=== PATIENT | female | born 1955 | race Caucasian/White ===

== ENCOUNTER 2019-05-17 10:58 | Inpatient (IN) | payer OTHER ==
--- NOTE | 2019-05-17 11:10 | CT ---
EXAM: CT brain without contrast HISTORY: Left-sided weakness and facial drooping COMPARISON: None TECHNIQUE: Multiple contiguous axial images were obtained and a CT of the brain without contrast. FINDINGS: The brain is normal in morphology and attenuation without focal lesions or confluent areas of infarction. There is no evidence of hydrocephalus, intracranial hemorrhage, or extra-axial fluid collection. The calvarium and overlying soft tissues are unremarkable. The visualized paranasal sinuses and masto id air cells are well aerated. IMPRESSION: No evidence of acute intracranial abnormality Dr. Wilson notified of findings at 11:07 AM on 05/17/2019.
[2019-05-17 11:16] LABS: #Basophils 0.1 thou/uL (0.0-0.2); #Lymphocytes 1.9 thou/uL (1.20-3.40); #Monocytes 0.6 thou/uL (0.11-0.59); %Basophils 0.5 % (0.0-1.0); %Eosinophils 0.4 % (0.0-10.0); %Lymphocytes 14.9 % (21.0-51.0); %Monocytes 4.9 % (0.0-10.0); %Neutrophils 79.3 % (42.0-75.0); Hemoglobin 14.3 g/dL (12.0-16.0); Mean Corpuscular HGB CONC 33.2 g/dL (32.0-36.0); Mean Corpuscular Volume 87.3 fL (78.0-98.0); Mean Platelet Volume 8.7 fL (7.4-10.4); Platelet Count 179 thou/uL (130-400); RBC Distribution Width 12.5 % (11.5-14.5); Red Blood Cell (RBC) Count 4.92 mill/uL (4.20-5.40); White Blood Cell (WBC) Count 12.6 thou/uL (4.8-10.8)
[2019-05-17 11:22] LABS: PTT 30.8 SEC (22.9-36.1); Prothrombin Time 12.5 SEC (12.0-14.7)
[2019-05-17 11:23] LABS: INR-International Normal Ratio 0.9
--- NOTE | 2019-05-17 11:36 | CT ---
Exam: CTA neck with contrast CTA head with contrast HISTORY: Left-sided weakness and facial drooping COMPARISON: None TECHNIQUE: 1. Multiple contiguous axial images were obtained and a CTA of the neck with contrast. 3-D sagittal a nd coronal MIP reformats were performed. 2. Multiple contiguous axial images were obtained and a CTA of the head with contrast. 3-D sagittal a nd coronal MIP reformats were performed. FINDINGS: CTA NECK: Aortic arch: Normal origin of the carotid arteries from the arch. No significant atherosclerotic dise ase of the subclavian arteries. Right common carotid artery: No significant atherosclerotic disease or narrowing Left common carotid artery: No significant atherosclerotic disease or narrowing Right internal carotid artery: Mild atherosclerotic disease with less than 10% stenosis per NASCET cr iteria Right external carotid artery: No significant atherosclerotic disease or narrowing Left internal carotid artery: Mild atherosclerotic disease with less than 10% stenosis per NASCET cr iteria Left external carotid artery: No significant atherosclerotic disease or narrowing Right cervical vertebral artery: No significant atherosclerotic disease or narrowing Left cervical vertebral artery: No significant atherosclerotic disease or narrowing No cervical adenopathy. The lung apices are unremarkable. The osseous structures are unremarkable. CTA HEAD: Right intracranial internal carotid artery: Patent without narrowing or occlusion Right anterior cerebral artery: Patent without narrowing or occlusion Right middle cerebral artery: Patent without narrowing or occlusion Left intracranial internal carotid artery: Patent without narrowing or occlusion Left anterior cerebral artery: Patent without narrowing or occlusion Left middle cerebral artery: Patent without narrowing or occlusion No aneurysmal dilatation is seen in the anterior circulation. Right vertebral artery: Patent without narrowing or occlusion Left vertebral artery: Patent without narrowing or occlusion Basilar artery: Patent without narrowing or occlusion The posterior cerebral arteries and cerebellar arteries are patent without narrowing or occlusion. No aneurysmal dilatation is seen in the posterior circulation. IMPRESSION: 1. No significant CTA abnormality of the neck 2. No significant CTA abnormality of the head
[2019-05-17] MEDS ORDERED: Nitroglycerin 2% Ointment 1 INCH/1 GM Packet ONE (11:38)
[2019-05-17] MEDS ORDERED: Aspirin 325 MG TAB ONE (11:38)
[2019-05-17] MEDS ORDERED: Iopamidol-370 76% 500 ML 1 ML ONE (11:50)
[2019-05-17 12:19] LABS: ALT (SGPT) 20 U/L (8-55); AST (SGOT) 17 U/L (5-34); Albumin 4.2 g/dL (3.4-4.8); Alkaline Phosphatase 74 U/L (40-110); Anion Gap 15 mmol/L (10-20); BUN (Urea Nitrogen) 15 mg/dL (9.8-20.1); Bilirubin, Total 0.5 mg/dL (0.2-1.2); CK (CPK) 34 U/L (29-168); Calc. Creatinine Clearance 0 mL/min (70-130); Calcium 9.7 mg/dL (7.8-10.44); Carbon Dioxide 22 mmol/L (23-31); Chloride 105 mmol/L (98-107); Estimated GFR-MDRD 84; Globulin 2.9 g/dL (2.4-3.5); Glucose 272 mg/dL (80-115); Potassium 4.3 mmol/L (3.5-5.1); Protein, Total 7.1 g/dL (6.0-8.3); Sodium 138 mmol/L (136-145)
[2019-05-17] MEDS ORDERED: Bisacodyl 10 MG SUPP PR PRN (15:03)
[2019-05-17] MEDS ORDERED: Acetaminophen 325 MG TAB PO PRN (15:03)
[2019-05-17] MEDS ORDERED: Artificial Tears 18 DROP/0.9 ML EA EYE PRN (15:03)
[2019-05-17] MEDS ORDERED: Zolpidem Tartrate 5 MG TAB PO PRN (15:03)
[2019-05-17] MEDS ORDERED: Sodium Chloride 0.65% Nasal 44 ML BOT EA NARE PRN (15:03)
[2019-05-17] MEDS ORDERED: Dextrose 50% Abboject 50 ML SYRINGE SLOW IVP PRN (15:03)
[2019-05-17] MEDS ORDERED: Loperamide HCl 2 MG CAP PO PRN (15:03)
[2019-05-17] MEDS ORDERED: Cepastat Lozenges 1 LOZ PO PRN (15:03)
[2019-05-17] MEDS ORDERED: Ondansetron PF 4 MG/2 ML Vial IVP PRN (15:03)
[2019-05-17] MEDS ORDERED: Dextrose 5% in Water 1,000 ML IV PRN (15:03)
[2019-05-17] MEDS ORDERED: Senokot S 8.6-50 MG TAB PO PRN (15:03)
[2019-05-17] MEDS ORDERED: Diabetic Tussin 200 MG/10 ML UDCUP PO PRN (15:03)
[2019-05-17] MEDS ORDERED: Loratadine 10 MG TAB PO PRN (15:03)
[2019-05-17] MEDS ORDERED: Ondansetron ODT 4 MG TAB PO PRN (15:03)
[2019-05-17] MEDS ORDERED: Calcium Carbonate 500 MG ChewTAB PO PRN (15:03)
[2019-05-17] MEDS ORDERED: HumaLOG 300 UNITS/3 ML VIAL SC PRN ×2 (15:03)
[2019-05-17] MEDS ORDERED: hydrALAZINE 20 MG/ML VIAL SLOW IVP PRN (15:03)
--- NOTE | 2019-05-17 15:28 | HP ---
PRIMARY CARE PHYSICIAN: Dr. Sami Monae. REASON FOR ADMISSION: Acute CVA. HISTORY OF PRESENT ILLNESS: A 64-year-old female, who has underlying history of diabetes type 2 and hypertension, who presented to emergency room with complaint of left-sided upper and lower extremity weakness and facial droop as well as slurred speech. The patient reports that yesterday in the evening when she was returning from restaurant to go home, at that time she noticed that her left lower extremity was dragging. She ignored that symptoms. She required help from her son to get out of car to go to her bedroom. The patient did not come to medical attention at that time. She went to bed and she slept, and during night time, the patient was having cramping in the lower extremity. When she woke up this morning around 6 a.m., the patient was not able to ambulate and required help from her . Subsequently, she went to sleep and again at 7:30, the patient was not able to ambulate because she was having more weakness in the lower extremity and upper extremity, and she was also having facial droop and difficulty speaking and that is why the patient decided to come to emergency room for evaluation. In the emergency room, the patient was experiencing weakness in the upper extremity as well as her facial droop was not changing. She had CT brain, which was unremarkable and CT angiography of head and neck was also unremarkable. She was hypertensive initially. In the emergency room, the patient was given aspirin and IV fluid as well as nitroglycerin patch was applied. REVIEW OF SYSTEMS: CONSTITUTIONAL: Negative for weight loss or gain, ability to conduct usual activities. SKIN: Negative for rash, itching. EYES: Negative for double vision, pain. ENT/MOUTH: Negative for nose bleeding, neck stiffness, pain, tenderness. CARDIOVASCULAR: Negative for palpitations, dyspnea on exertion, orthopnea. RESPIRATORY: Negative for shortness of breath, wheezing, cough, hemoptysis, fever or night sweats. GASTROINTESTINAL: Negative for poor appetite, abdominal pain, heartburn, nausea, vomiting, constipation, or diarrhea. GENITOURINARY: Negative for urgency, frequency, dysuria, nocturia. MUSCULOSKELETAL: Negative for pain, swelling. NEUROLOGIC/PSYCHIATRIC: Negative for anxiety, depression. ALLERGY/IMMUNOLOGIC: Negative for skin rash, bleeding tendency. Please see my HPI for pertinent positives and negatives. All other review of systems reviewed and negative except as mentioned in HPI. PAST MEDICAL HISTORY: Diabetes type 2, hypertension, nephrolithiasis. PAST SURGICAL HISTORY: Cholesterol cyst removed from face, tonsillectomy. PAST PSYCHIATRIC HISTORY: Reviewed and negative. SOCIAL HISTORY: The patient is . No history of tobacco, alcohol, or illicit drug abuse. FAMILY HISTORY: No strong family history of premature coronary artery disease, stroke, or cancer. ALLERGIES: PENICILLIN AND VICODIN. CURRENT HOME MEDICATIONS: The patient does not have any medication with her at this point and unable to recall. EMERGENCY ROOM COURSE: The patient was given aspirin, nitroglycerin patch, and IV fluid. PHYSICAL EXAMINATION: VITAL SIGNS: Currently, blood pressure 184/93, pulse 93, respiratory rate 16, temperature 98.5, saturation 99% on room air, weight 71 kg. GENERAL: The patient is currently alert and awake. No obvious acute distress. HEENT: Head; normocephalic, atraumatic. Eyes; pupils round, reactive to light. Extraocular muscle intact. ENT, oropharynx within normal limits. Moist mucous membranes. No oral lesion. No pharyngeal erythema. No exudate. Left-sided facial droop noted. NECK: Supple. No JVD. No thyromegaly. No carotid bruit. LUNGS: Clear to auscultation without any rhonchi or rales. CARDIAC: S1 and S2, regular without any murmur. No gallop. No rub. ABDOMEN: Soft. Bowel sounds present. Nontender. Nondistended. No organomegaly. No mass. EXTREMITIES: No edema. Good distal pulsation. SKIN: No skin rash. PSYCHIATRIC: Normal affect. NEUROLOGIC: The patient is alert and oriented x3. Cranial nerves 2 through 12 intact except left-sided 7th upper motor neuron palsy. Motor 3/5 in lower extremity and 2/5 in upper extremity. Sensation normal. Plantar, bilateral flexor. Unable to perform cerebellar sign to the left upper extremity. SIGNIFICANT LABORATORY DATA: EKG is showing normal sinus rhythm and left atrial enlargement. CTA brain based on my review, no acute intracranial process. CT head and neck angiography showed no acute large vessel occlusion and atherosclerosis. CBC; WBC 12.6, hemoglobin 14.3, platelet 179. INR 0.9. BMP; sodium 138, potassium 4.3, chloride 105, carbon dioxide 22, anion gap 15, BUN 15, creatinine 0.70, glucose 272, calcium 9.7. LFT; AST 17, ALT 20, alkaline phosphatase 74, albumin 4.2. Troponin I less than 0.010. ASSESSMENT AND PLAN: 1. Acute cerebrovascular accident suspecting right middle cerebral artery territory cerebrovascular accident due to small vessel occlusion. CT angiography and CT brain are not showing any acute process at this point. The patient is out of window period for tissue plasminogen activator as well. At this point, the patient will need PT, OT, Speech and rehab evaluation. We will consult Neurology for their opinion. We will continue with aspirin 325 mg p.o. daily. We will keep permissive hypertension today. We will start Lipitor 40 mg p.o. at bedtime. We will obtain MRI brain and echocardiography as a part of stroke workup. We will also check homocystine and urine drug screen as a part of workup. 2. Diabetes type 2. We will continue with insulin as per sliding scale. Diabetic diet will be given. We will check hemoglobin A1c tomorrow. 3. Dyslipidemia. We will check lipid profile tomorrow and continue Lipitor 40 mg p.o. at bedtime. 4. Hypertension. At this point, we will not start antihypertensive medication. We will keep blood pressure on upper limit, only very rare. If blood pressure is more than 180, then we will use hydralazine on a p.r.n. basis. 5. Deep venous thrombosis prophylaxis with Lovenox 40 mg subcu daily. 6. Gastrointestinal prophylaxis with Pepcid 20 mg p.o. b.i.d. CODE STATUS: The patient is full code. The patient's is surrogate decision maker. DISPOSITION PLAN: Based on clinical course, the patient most likely will need rehabilitation. Plan of care discussed with the patient and her at bedside in the emergency room. Job ID: [id number]
[2019-05-17 18:26] VITALS: BMI 28.5
[2019-05-17 19:12] LABS: Amphetamine Not Detected (NotDetected); Barbiturates Screen Not Detected (NotDetected); Benzodiazepine Screen Not Detected (NotDetected); Cocaine Metabolite Screen Not Detected (NotDetected); Medtox Control Line Valid? VALID (VALID); Medtox Reader # READER 4; Methadone Not Detected (NotDetected); Methamphetamine Not Detected (NotDetected); Opiate Screen Not Detected (NotDetected); Oxycodone Screen Not Detected (NotDetected); Phencyclidine (PCP) Not Detected (NotDetected); THC/Cannabinoid Screen Not Detected (NotDetected); Tricyclic Screen Not Detected (NotDetected)
[2019-05-17] MEDS: Atorvastatin Calcium 40 MG TAB PO SCH (20:45)
[2019-05-17] MEDS: Famotidine 20 MG TAB PO SCH (20:46)
[2019-05-18 05:10] LABS: #Basophils 0.1 thou/uL (0.0-0.2); #Eosinphils 0.1 thou/uL (0.0-0.7); #Lymphocytes 2.4 thou/uL (1.20-3.40); #Monocytes 0.5 thou/uL (0.11-0.59); #Neutrophils 5.2 thou/uL (1.40-6.50); %Basophils 0.7 % (0.0-1.0); %Eosinophils 1.5 % (0.0-10.0); %Lymphocytes 28.8 % (21.0-51.0); %Monocytes 5.9 % (0.0-10.0); %Neutrophils 63.1 % (42.0-75.0); Hemoglobin 13.6 g/dL (12.0-16.0); Mean Corpuscular HGB CONC 33.1 g/dL (32.0-36.0); Mean Corpuscular Hemoglobin 29.1 pg (27.0-31.0); Mean Corpuscular Volume 87.8 fL (78.0-98.0); Mean Platelet Volume 8.8 fL (7.4-10.4); Platelet Count 165 thou/uL (130-400); RBC Distribution Width 12.6 % (11.5-14.5); Red Blood Cell (RBC) Count 4.67 mill/uL (4.20-5.40); White Blood Cell (WBC) Count 8.3 thou/uL (4.8-10.8)
[2019-05-18 05:23] LABS: Anion Gap 11 mmol/L (10-20); BUN (Urea Nitrogen) 9 mg/dL (9.8-20.1); Calc. Creatinine Clearance 106 mL/min (70-130); Calcium 9.7 mg/dL (7.8-10.44); Carbon Dioxide 27 mmol/L (23-31); Cardiac Risk 3.9 (Less than 4.5); Chloride 107 mmol/L (98-107); Cholesterol 190 mg/dl (< 200 Desired); Estimated GFR-MDRD Greater than 90; Glucose 172 mg/dL (80-115); HDL Cholesterol 49 mg/dL (>60 Neg Risk); LDL Cholesterol, Calculated 119 mg/dL; Potassium 3.9 mmol/L (3.5-5.1); Sodium 141 mmol/L (136-145); Triglycerides 109 mg/dL (Less than 150)
[2019-05-18 05:41] LABS: Syphilis Antibody Nonreactive (Nonreactive); Syphilis Antibody Index 0.05 S/CO (<1.00 Non-Reactive)
[2019-05-18] MEDS ORDERED: Lorazepam 2 MG/ML VIAL SLOW IVP PRN (08:45)
[2019-05-18] MEDS ORDERED: FLU VACC TS2019-20(65YR UP)/PF 180 MCG/0.5 ML SYRINGE IM ONE (09:00)
[2019-05-18] MEDS: Famotidine 20 MG TAB PO SCH (09:23)
[2019-05-18] MEDS: Enoxaparin Sodium 40 MG/0.4 ML SYRINGE SC SCH (09:23)
--- NOTE | 2019-05-18 09:51 | CON ---
DATE OF CONSULTATION: 05/18/2019 CONSULTING PHYSICIAN: Hospitalist Service. IMPRESSION: 1. Probable lacunar stroke with left-sided weakness. 2. Diabetes. 3. Hypertension. PLAN: 1. Continue statin and start aspirin daily. 2. PT and OT evaluations. 3. Echocardiogram. 4. MRI of the brain. 5. Probable rehab transfer. HISTORY OF PRESENT ILLNESS: Ms. Rich is a 64-year-old woman, who reportedly had diet-controlled diabetes. She exercises on a regular basis. She presented with some progressive left-sided weakness. It was not associated with any sensory loss. She is not having any problems with speech or swallowing. She has never had anything like this before. Initial CT and CT angiogram were both unremarkable. Laboratory studies showed an elevated blood glucose over 200, but was otherwise unremarkable. Her cholesterol ratio was 3.9. Toxicology screen was negative. Her syphilis is negative. She has been admitted for further evaluation. PAST MEDICAL HISTORY: Diabetes. ALLERGIES: PENICILLIN, HYDROCODONE. SOCIAL HISTORY: No tobacco use. FAMILY HISTORY: Unremarkable. MEDICATION LIST: Reviewed. REVIEW OF SYSTEMS: Ten-system review of systems is otherwise negative. PHYSICAL EXAMINATION: VITAL SIGNS: Blood pressure 174/87, pulse 79, respirations 16, and temperature 99.4. HEENT: Pupils are equal and reactive. Conjunctivae are clear. Oropharynx clear. NECK: Supple. EXTREMITIES: No cyanosis or edema. NEUROLOGIC: She is alert and oriented. Her speech is fluent and clear. Cranial nerve exam shows a mild left facial droop. Motor exam shows no movement in the left upper extremity. She is able to hip flex on the left. It is weak distally. Sensation is intact to light touch. There is no tremor or dysmetria present. Gait was not tested. LABORATORY DATA: Laboratory studies were reviewed. IMAGING: Reviewed. SUMMARY: This is a middle-aged woman with an acute left-sided weakness, which looks consistent with a small vessel stroke. We will pursue follow up on her workup and make further recommendations as necessary. Job ID: [id number]
--- NOTE | 2019-05-18 10:10 | PDOC.HOSPP ---
- Subjective Encounter Date: 05/18/19 Encounter Time: 07:45 Subjective: Patient seen and examined. No new complaints. No overnight events pt has facial droop, left side weakness - Objective Vital Signs & Weight: Vital Signs (12 hours) Temp Pulse Resp BP Pulse Ox 05/18/19 09:23 98 05/18/19 07:13 99.4 F 79 16 174/87 H 98 05/18/19 04:00 97.9 F 82 18 150/89 H 98 05/17/19 23:52 99.0 F 79 16 146/77 H 95 Weight Weight 161 lb I&O: 05/17/19 05/18/19 05/19/19 06:59 06:59 06:59 Intake Total 240 Output Total 300 Balance -60 Result Diagrams: 05/18/19 04:50 05/18/19 04:50 Additional Labs: Accuchecks 05/18/19 05/17/19 05/17/19 06:09 20:48 11:24 POC Glucose 167 H 177 H 246 H Radiology Reviewed by me: Yes EKG Reviewed by me: Yes Hospitalist ROS - Review of Systems Constitutional: denies: fever, chills, sweats, weakness, malaise, other Eyes: denies: pain, vision change, conjunctivae inflammation, eyelid inflammation, redness, other ENT: denies: ear pain, ear discharge, nose pain, nose discharge, nose congestion , mouth pain, mouth swelling, throat pain, throat swelling, other Respiratory: denies: cough, dry, shortness of breath, hemoptysis, SOB with excertion, pleuritic pain, sputum, wheezing, other Cardiovascular: denies: chest pain, palpitations, orthopnea, paroxysmal noc. dyspnea, edema, light headedness, other Gastrointestinal: denies: nausea, vomiting, abdominal pain, diarrhea, constipation, melena, hematochezia, other Genitourinary: denies: dysuria, frequency, incontinence, hematuria, retention, other Musculoskeletal: denies: neck pain, shoulder pain, arm pain, back pain, hand pain, leg pain, foot pain, other Skin: denies: rash, lesions, jonatan, bruising, other Neurological: reports: weakness. denies: numbness, incoordination, change in speech, confusion, seizures, other - Medication Medications: Active Medications Generic Name Dose Route Start Last Admin Trade Name Patricia PRN Reason Stop Dose Admin Atorvastatin Calcium 40 mg 05/17/19 21:00 05/17/19 20:45 Lipitor PO 40 mg HS MEENAKSHI Administration Enoxaparin Sodium 40 mg 05/18/19 09:00 05/18/19 09:23 Lovenox SC 40 mg 0900 MEENAKSHI Administration Famotidine 20 mg 05/17/19 21:00 05/18/19 09:23 Pepcid PO Not Given BID MEENAKSHI - Exam General Appearance: NAD, awake alert Eye: PERRL, anicteric sclera ENT: normocephalic atraumatic, no oropharyngeal lesions Neck: supple, symmetric, no JVD, no thyromegaly Heart: RRR, no murmur, no gallops, no rubs, normal peripheral pulses Respiratory: CTAB, no wheezes, no rales, no ronchi Gastrointestinal: soft, non-tender, non-distended, normal bowel sounds, no palpable masses Extremities: no cyanosis, no clubbing, no edema Skin: normal turgor, no lesions, no rashes Neurological: facial droop, hemiplegia Musculoskeletal: normal tone, normal strength Psychiatric: normal affect, normal behavior, A&O x 3 Hosp A/P (1) Acute CVA (cerebrovascular accident) Code(s): I63.9 - CEREBRAL INFARCTION, UNSPECIFIED Status: Acute (2) Hypertension Code(s): I10 - ESSENTIAL (PRIMARY) HYPERTENSION Status: Chronic Qualifiers: Hypertension type: essential hypertension Qualified Code(s): I10 - Essential (primary) hypertension (3) Diabetes type 2, controlled Code(s): E11.9 - TYPE 2 DIABETES MELLITUS WITHOUT COMPLICATIONS Status: Chronic (4) Dyslipidemia Code(s): E78.5 - HYPERLIPIDEMIA, UNSPECIFIED Status: Chronic - Plan old records reviewed/req, PT/OT, addiction social worker, speech therapy, DVT proph w/ lovenox 05/18/19 will give ativan for MRI today MRI, echo neurology recommendation appreciated continue stroke team evaluation rehab on discharge check HBA1c
[2019-05-18 11:43] LABS: Hemoglobin A1c 8.1 % (4.0-6.0)
--- NOTE | 2019-05-18 11:45 | MRI ---
EXAM: MRI of the brain without contrast HISTORY: Stroke with left-sided weakness and facial drooping COMPARISON: CT brain 05/17/2019 TECHNIQUE: Multiplanar multisequence MR images were obtained of the brain without IV contrast. FINDINGS: There is a 1.8 cm area of restricted diffusion and high FLAIR signal in the right aspect of the sheeba consistent with an acute infarction. This is difficult to see on the prior CT brain given the susceptibility artifact in the posterior fossa. No hydronephrosis. No extra-axial fluid collection or intracranial hemorrhage. The expected flow voids are present. Corpus callosum, pituitary, and craniocervical junction are within normal limits. The calvarium and overlying soft tissues are unremarkable. The paranasal sinuses and mastoid air cells are well aerated. IMPRESSION: Acute infarction in the right aspect of the sheeba.
[2019-05-18] MEDS ORDERED: Aspirin 325 MG TAB PO SCH (14:45)
[2019-05-18] MEDS: Atorvastatin Calcium 40 MG TAB PO SCH (23:33)
[2019-05-19] MEDS: Famotidine 20 MG TAB PO SCH ×3 (03:47→21:10)
--- NOTE | 2019-05-19 09:55 | PDOC.HOSPP ---
- Subjective Encounter Date: 05/19/19 Encounter Time: 07:30 Subjective: Patient seen and examined. No new complaints. No overnight events - Objective Vital Signs & Weight: Vital Signs (12 hours) Temp Pulse Resp BP Pulse Ox 05/19/19 08:47 97 05/19/19 07:42 98.3 F 68 16 170/75 H 97 05/19/19 04:00 98.0 F 65 16 161/72 H 97 05/19/19 00:00 98.2 F 80 16 152/79 H 94 L Weight Weight 161 lb I&O: 05/18/19 05/19/19 05/20/19 06:59 06:59 06:59 Intake Total 240 240 Output Total 300 1000 Balance -60 -760 Result Diagrams: 05/18/19 04:50 05/18/19 04:50 Additional Labs: Accuchecks 05/19/19 05/18/19 05/18/19 05:51 20:44 16:38 POC Glucose 159 H 195 H 230 H 05/18/19 10:42 POC Glucose 210 H Radiology Reviewed by me: Yes EKG Reviewed by me: Yes Hospitalist ROS - Review of Systems Constitutional: denies: fever, chills, sweats, weakness, malaise, other Eyes: denies: pain, vision change, conjunctivae inflammation, eyelid inflammation, redness, other ENT: denies: ear pain, ear discharge, nose pain, nose discharge, nose congestion , mouth pain, mouth swelling, throat pain, throat swelling, other Respiratory: denies: cough, dry, shortness of breath, hemoptysis, SOB with excertion, pleuritic pain, sputum, wheezing, other Cardiovascular: denies: chest pain, palpitations, orthopnea, paroxysmal noc. dyspnea, edema, light headedness, other Gastrointestinal: denies: nausea, vomiting, abdominal pain, diarrhea, constipation, melena, hematochezia, other Genitourinary: denies: dysuria, frequency, incontinence, hematuria, retention, other Musculoskeletal: denies: neck pain, shoulder pain, arm pain, back pain, hand pain, leg pain, foot pain, other Neurological: reports: weakness. denies: numbness, incoordination, change in speech, confusion, seizures, other - Medication Medications: Active Medications Generic Name Dose Route Start Last Admin Trade Name Freq PRN Reason Stop Dose Admin Atorvastatin Calcium 40 mg 05/17/19 21:00 05/18/19 23:33 Lipitor PO 40 mg HS MEENAKSHI Administration Enoxaparin Sodium 40 mg 05/18/19 09:00 05/18/19 09:23 Lovenox SC 40 mg 0900 MEENAKSHI Administration Famotidine 20 mg 05/17/19 21:00 05/19/19 03:47 Pepcid PO Not Given BID MEENAKSHI Sodium Chloride 10 ml 05/17/19 15:03 05/18/19 23:33 Flush - Normal Saline IVF 10 ml PRN PRN Administration Saline Flush - Exam General Appearance: NAD, awake alert Eye: PERRL, anicteric sclera ENT: normocephalic atraumatic, no oropharyngeal lesions Neck: supple, symmetric, no JVD Heart: RRR, no murmur, no gallops Respiratory: CTAB, no wheezes, no rales Gastrointestinal: soft, non-tender, non-distended, normal bowel sounds Extremities: no cyanosis, no clubbing Skin: normal turgor, no lesions Neurological: facial droop, hemiplegia Musculoskeletal: normal tone, normal strength Psychiatric: normal affect, normal behavior Hosp A/P (1) Acute CVA (cerebrovascular accident) Code(s): I63.9 - CEREBRAL INFARCTION, UNSPECIFIED Status: Acute Plan: right sheeba (2) Hypertension Code(s): I10 - ESSENTIAL (PRIMARY) HYPERTENSION Status: Chronic Qualifiers: Hypertension type: essential hypertension Qualified Code(s): I10 - Essential (primary) hypertension (3) Diabetes type 2, controlled Code(s): E11.9 - TYPE 2 DIABETES MELLITUS WITHOUT COMPLICATIONS Status: Chronic (4) Dyslipidemia Code(s): E78.5 - HYPERLIPIDEMIA, UNSPECIFIED Status: Chronic - Plan old records reviewed/req, PT/OT, social worker masters, DVT proph w/lovenox 05/18/19 will give ativan for MRI today MRI, echo neurology recommendation appreciated continue stroke team evaluation rehab on discharge check HBA1c 05/19/19 add glipizide 2.5 m gpo bid add lisnopril 5 mg po daily continue stroke team evaluation expected dc to rehab may be tomorrow medication reviewed as above and continue to provide supportive care
[2019-05-19] MEDS: Aspirin 325 MG TAB PO SCH (10:33)
[2019-05-19] MEDS: Enoxaparin Sodium 40 MG/0.4 ML SYRINGE SC SCH (10:33)
[2019-05-19] MEDS: Lisinopril 5 MG TAB PO SCH (10:36)
[2019-05-19] MEDS: glipiZIDE 5 MG TAB PO SCH (16:13)
[2019-05-19] MEDS: Atorvastatin Calcium 40 MG TAB PO SCH (21:10)
[2019-05-20] MEDS: glipiZIDE 5 MG TAB PO SCH ×2 (09:44→17:26)
[2019-05-20] MEDS: Enoxaparin Sodium 40 MG/0.4 ML SYRINGE SC SCH (09:47)
[2019-05-20] MEDS: Lisinopril 5 MG TAB PO SCH (09:47)
[2019-05-20] MEDS: Aspirin 325 MG TAB PO SCH (09:47)
[2019-05-20] MEDS: Famotidine 20 MG TAB PO SCH (09:47)
--- NOTE | 2019-05-20 10:29 | PDOC.HOSPP ---
- Subjective Encounter Date: 05/20/19 Encounter Time: 07:40 Subjective: Patient seen and examined. No new complaints. No overnight events - Objective Vital Signs & Weight: Vital Signs (12 hours) Temp Pulse Resp BP BP Pulse Ox 05/20/19 09:55 94 L 05/20/19 09:47 78 142/75 H 05/20/19 07:16 98.0 F 79 16 142/75 H 94 L 05/20/19 03:10 98.4 F 80 16 142/76 H 97 05/19/19 23:20 98.2 F 84 16 140/73 97 Weight Weight 161 lb I&O: 05/19/19 05/20/19 05/21/19 06:59 06:59 06:59 Intake Total 240 400 Output Total 1000 1800 150 Balance -760 -1800 250 Result Diagrams: 05/18/19 04:50 05/18/19 04:50 Additional Labs: Accuchecks 05/20/19 05/19/19 05/19/19 05:58 19:16 16:30 POC Glucose 150 H 186 H 176 H 05/19/19 10:52 POC Glucose 198 H Hospitalist ROS - Review of Systems ENT: denies: ear pain, ear discharge, nose pain, nose discharge, nose congestion , mouth pain, mouth swelling, throat pain, throat swelling, other Respiratory: denies: cough, dry, shortness of breath, hemoptysis, SOB with excertion, pleuritic pain, sputum, wheezing, other Cardiovascular: denies: chest pain, palpitations, orthopnea, paroxysmal noc. dyspnea, edema, light headedness, other Gastrointestinal: denies: nausea, vomiting, abdominal pain, diarrhea, constipation, melena, hematochezia, other Genitourinary: denies: dysuria, frequency, incontinence, hematuria, retention, other Musculoskeletal: denies: neck pain, shoulder pain, arm pain, back pain, hand pain, leg pain, foot pain, other Neurological: reports: weakness. denies: numbness, incoordination, change in speech, confusion, seizures, other - Medication Medications: Active Medications Generic Name Dose Route Start Last Admin Trade Name Freq PRN Reason Stop Dose Admin Aspirin 325 mg 05/19/19 09:00 05/20/19 09:47 Aspirin PO 325 mg DAILY MEENAKSHI Administration Atorvastatin Calcium 40 mg 05/17/19 21:00 05/19/19 21:10 Lipitor PO 40 mg HS MEENAKSHI Administration Enoxaparin Sodium 40 mg 05/18/19 09:00 05/20/19 09:47 Lovenox SC 40 mg 0900 MEENAKSHI Administration Famotidine 20 mg 05/17/19 21:00 05/20/19 09:47 Pepcid PO Not Given BID MEENAKSHI Glipizide 2.5 mg 05/19/19 16:30 05/20/19 09:44 Glucotrol PO 2.5 mg BID-AC MEENAKSHI Administration Lisinopril 5 mg 05/19/19 09:00 05/20/19 09:47 Zestril PO 5 mg DAILY MEENAKSHI Administration Sodium Chloride 10 ml 05/17/19 15:03 05/18/19 23:33 Flush - Normal Saline IVF 10 ml PRN PRN Administration Saline Flush - Exam General Appearance: NAD, awake alert Eye: PERRL, anicteric sclera ENT: normocephalic atraumatic, no oropharyngeal lesions Neck: supple, symmetric, no JVD Respiratory: CTAB, no wheezes, no rales Gastrointestinal: soft, non-tender, non-distended, normal bowel sounds Extremities: no edema Skin: normal turgor, no lesions Neurological: facial droop, hemiplegia Musculoskeletal: normal tone, normal strength Psychiatric: normal affect, normal behavior Hosp A/P (1) Acute CVA (cerebrovascular accident) Code(s): I63.9 - CEREBRAL INFARCTION, UNSPECIFIED Status: Acute (2) Hypertension Code(s): I10 - ESSENTIAL (PRIMARY) HYPERTENSION Status: Chronic Qualifiers: Hypertension type: essential hypertension Qualified Code(s): I10 - Essential (primary) hypertension (3) Diabetes type 2, controlled Code(s): E11.9 - TYPE 2 DIABETES MELLITUS WITHOUT COMPLICATIONS Status: Chronic (4) Dyslipidemia Code(s): E78.5 - HYPERLIPIDEMIA, UNSPECIFIED Status: Chronic - Plan old records reviewed/req, PT/OT, child welfare social worker 05/18/19 will give ativan for MRI today MRI, echo neurology recommendation appreciated continue stroke team evaluation rehab on discharge check HBA1c 05/19/19 add glipizide 2.5 m gpo bid add lisnopril 5 mg po daily continue stroke team evaluation expected dc to rehab may be tomorrow medication reviewed as above and continue to provide supportive care 05/20/19 stroke team evaluation rehab placement medication reviewed as above and symptomatic treatment
[2019-05-20] MEDS: Atorvastatin Calcium 40 MG TAB PO SCH (20:57)
[2019-05-21] MEDS: glipiZIDE 5 MG TAB PO SCH ×2 (09:05→17:58)
[2019-05-21] MEDS: Lisinopril 5 MG TAB PO SCH (09:08)
[2019-05-21] MEDS: Aspirin 325 MG TAB PO SCH (09:08)
[2019-05-21] MEDS: Enoxaparin Sodium 40 MG/0.4 ML SYRINGE SC SCH (09:09)
--- NOTE | 2019-05-21 10:17 | PDOC.HOSPP ---
- Subjective Encounter Date: 05/21/19 Encounter Time: 07:40 Subjective: Patient seen and examined. No new complaints. No overnight events - Objective Vital Signs & Weight: Vital Signs (12 hours) Temp Pulse Resp BP Pulse Ox 05/21/19 09:08 85 05/21/19 07:32 97.5 F L 96 20 141/74 H 97 05/21/19 04:00 98.3 F 61 18 147/78 H 97 05/21/19 00:00 98.5 F 97 14 154/67 H 70 L Weight Weight 161 lb I&O: 05/20/19 05/21/19 05/22/19 06:59 06:59 06:59 Intake Total 700 420 Output Total 1800 151 300 Balance -1800 549 120 Result Diagrams: 05/18/19 04:50 05/18/19 04:50 Additional Labs: Accuchecks 05/21/19 05/20/19 05/20/19 06:04 20:51 16:47 POC Glucose 128 H 163 H 110 05/20/19 10:49 POC Glucose 222 H EKG Reviewed by me: Yes Hospitalist ROS - Review of Systems ENT: denies: ear pain, ear discharge, nose pain, nose discharge, nose congestion , mouth pain, mouth swelling, throat pain, throat swelling, other Respiratory: denies: cough, dry, shortness of breath, hemoptysis, SOB with excertion, pleuritic pain, sputum, wheezing, other Cardiovascular: denies: chest pain, palpitations, orthopnea, paroxysmal noc. dyspnea, edema, light headedness, other Gastrointestinal: denies: nausea, vomiting, abdominal pain, diarrhea, constipation, melena, hematochezia, other Genitourinary: denies: dysuria, frequency, incontinence, hematuria, retention, other Musculoskeletal: denies: neck pain, shoulder pain, arm pain, back pain, hand pain, leg pain, foot pain, other - Medication Medications: Active Medications Generic Name Dose Route Start Last Admin Trade Name Freq PRN Reason Stop Dose Admin Aspirin 325 mg 05/19/19 09:00 05/21/19 09:08 Aspirin PO 325 mg DAILY MEENAKSHI Administration Atorvastatin Calcium 40 mg 05/17/19 21:00 05/20/19 20:57 Lipitor PO 40 mg HS MEENAKSHI Administration Enoxaparin Sodium 40 mg 05/18/19 09:00 05/21/19 09:09 Lovenox SC 40 mg 0900 MEENAKSHI Administration Glipizide 2.5 mg 05/19/19 16:30 05/21/19 09:05 Glucotrol PO 2.5 mg BID-AC MEENAKSHI Administration Lisinopril 5 mg 05/19/19 09:00 05/21/19 09:08 Zestril PO 5 mg DAILY MEENAKSHI Administration Sodium Chloride 10 ml 05/17/19 15:03 05/21/19 09:09 Flush - Normal Saline IVF 10 ml PRN PRN Administration Saline Flush - Exam General Appearance: NAD, awake alert Eye: PERRL, anicteric sclera ENT: normocephalic atraumatic, no oropharyngeal lesions Neck: supple, symmetric, no JVD Heart: RRR, no murmur, no gallops, no rubs Respiratory: CTAB, no wheezes, no rales, no ronchi Gastrointestinal: soft, non-tender, non-distended, normal bowel sounds Extremities: no edema Skin: normal turgor, no lesions Neurological: facial droop, hemiplegia Musculoskeletal: normal tone, normal strength Psychiatric: normal affect, normal behavior, A&O x 3 Hosp A/P (1) Acute CVA (cerebrovascular accident) Code(s): I63.9 - CEREBRAL INFARCTION, UNSPECIFIED Status: Acute (2) Hypertension Code(s): I10 - ESSENTIAL (PRIMARY) HYPERTENSION Status: Chronic Qualifiers: Hypertension type: essential hypertension Qualified Code(s): I10 - Essential (primary) hypertension (3) Diabetes type 2, controlled Code(s): E11.9 - TYPE 2 DIABETES MELLITUS WITHOUT COMPLICATIONS Status: Chronic (4) Dyslipidemia Code(s): E78.5 - HYPERLIPIDEMIA, UNSPECIFIED Status: Chronic - Plan old records reviewed/req, PT/OT, social service assistant 05/18/19 will give ativan for MRI today MRI, echo neurology recommendation appreciated continue stroke team evaluation rehab on discharge check HBA1c 05/19/19 add glipizide 2.5 m gpo bid add lisnopril 5 mg po daily continue stroke team evaluation expected dc to rehab may be tomorrow medication reviewed as above and continue to provide supportive care 05/20/19 stroke team evaluation rehab placement medication reviewed as above and symptomatic treatment 05/21/19 stable medically await rehab placement pending insurance authorization
[2019-05-21] MEDS: Atorvastatin Calcium 40 MG TAB PO SCH (22:13)
[2019-05-22] MEDS: Aspirin 325 MG TAB PO SCH (08:27)
[2019-05-22] MEDS: glipiZIDE 5 MG TAB PO SCH ×2 (08:27→17:13)
[2019-05-22] MEDS: Lisinopril 5 MG TAB PO SCH (08:28)
[2019-05-22 09:43] LABS: #Basophils 0.1 thou/uL (0.0-0.2); #Eosinphils 0.1 thou/uL (0.0-0.7); #Lymphocytes 2.4 thou/uL (1.20-3.40); #Monocytes 0.5 thou/uL (0.11-0.59); #Neutrophils 6.4 thou/uL (1.40-6.50); %Basophils 0.6 % (0.0-1.0); %Eosinophils 1.2 % (0.0-10.0); %Lymphocytes 24.9 % (21.0-51.0); %Monocytes 5.6 % (0.0-10.0); %Neutrophils 67.7 % (42.0-75.0); Hemoglobin 14.3 g/dL (12.0-16.0); Mean Corpuscular Hemoglobin 29.3 pg (27.0-31.0); Mean Platelet Volume 8.7 fL (7.4-10.4); Platelet Count 182 thou/uL (130-400); RBC Distribution Width 12.7 % (11.5-14.5); Red Blood Cell (RBC) Count 4.86 mill/uL (4.20-5.40); White Blood Cell (WBC) Count 9.5 thou/uL (4.8-10.8)
[2019-05-22 09:57] LABS: Anion Gap 12 mmol/L (10-20); BUN (Urea Nitrogen) 12 mg/dL (9.8-20.1); BUN/Creatinine Ratio 17.65; Calc. Creatinine Clearance 94 mL/min (70-130); Carbon Dioxide 30 mmol/L (23-31); Chloride 101 mmol/L (98-107); Estimated GFR-MDRD 87; Glucose 215 mg/dL (80-115); Magnesium 1.8 mg/dL (1.6-2.6); Potassium 4.6 mmol/L (3.5-5.1); Sodium 138 mmol/L (136-145)
[2019-05-22] MEDS: Enoxaparin Sodium 40 MG/0.4 ML SYRINGE SC SCH (10:07)
[2019-05-22 15:58] VITALS: TEMP 98
[2019-05-22 16:45] VITALS: BP 147/85
--- NOTE | 2019-05-23 08:18 | DIS ---
DATE OF ADMISSION: 05/17/2019 DATE OF DISCHARGE: 05/22/2019 DISCHARGE DISPOSITION: Inpatient rehabilitation. The patient was seen and examined on the day of discharge. Denies any new complaints. FOLLOWUP: The patient will follow up with the primary care physician, Dr. Sami Monae in 3 to 4 days. ALLERGIES: THE PATIENT IS ALLERGIC TO PENICILLIN AND HYDROCODONE. DISCHARGE MEDICATIONS: 1. Aspirin 325 mg daily. 2. Lipitor 40 mg at bedtime. 3. Multivitamin one tablet daily. 4. Glipizide 2.5 mg b.i.d. with meals. 5. Humalog sliding scale. 6. Lisinopril 2.5 mg daily. 7. Metformin 500 mg b.i.d. INPATIENT TERMITE CONTROL REPRESENTATIVE: Neurology, Dr. Sánchez. BRIEF HOSPITAL COURSE: The patient is a 64-year-old female with hypertension and diabetes mellitus type 2, presented to the hospital with left-sided weakness along with facial droop and slurring of speech. CT scan of the brain was negative for acute CVA. CT angiogram of the head and neck was negative for significant stenosis. She was monitored in the stroke unit. MRI of the brain was consistent with acute infarction in the right aspect of the sheeba. Echocardiogram showed left ventricular ejection fraction of 55% to 60%. The patient was evaluated by Neurology, Dr. Sánchez, who recommended aspirin and statins. Lifestyle modification was emphasized. A fasting lipid profile showed triglyceride of 109, cholesterol of 190, LDL of 119 with HDL of 49. Hemoglobin A1c was 8.1. She appears stable for discharge. FINAL DIAGNOSES: 1. Acute CVA involving the right sheeba causing left-sided weakness, facial droop, and slurring of speech. 2. Diabetes mellitus type 2. 3. Hypertension. 4. Chronic kidney disease stage 2. 5. Hyperlipidemia. PLAN: Plan was discussed with the patient in detail. She stated understanding. TIME SPENT: Total time coordinating the discharge of this patient was 34 minutes. Job ID: [id number]
== END 2019-05-22 19:54 | DRG 65 ==
LOC: ERS 10:58 → ERHOLD 14:29 → 2SE 16:02
PROVIDERS: ADMIT Internal Medicine; ATTEND Internal Medicine
DX: I63.511 Cerebral infarction due to unspecified occlusion or stenosis of right middle cerebral artery (principal); G81.94 Hemiplegia, unspecified affecting left nondominant side; I10 Essential (primary) hypertension; E11.9 Type 2 diabetes mellitus without complications; E78.5 Hyperlipidemia, unspecified; R29.810 Facial weakness; R29.708 NIHSS score 8; R40.2362 Coma scale, best motor response, obeys commands, at arrival to emergency department; R40.2142 Coma scale, eyes open, spontaneous, at arrival to emergency department; R40.2252 Coma scale, best verbal response, oriented, at arrival to emergency department; R47.81 Slurred speech; I08.3 Combined rheumatic disorders of mitral, aortic and tricuspid valves
CPT/HCPCS: 36415; 36416; 70450; 70496; 70498; 70551; 80048; 80053; 80061; 80069; 80306; 82550; 83036; 83090; 83735; 84484; 85025; 85610; 85730; 86780; 87070; 87077; 87186; 93005; 93306; J1650; J2060; Q9967